=== PATIENT | female | born 1935 ===

== ENCOUNTER 2018-11-15 10:11 | Outpatient (CLI) | payer OTHER | END 2018-11-15 13:20 | disposition home or self-care (01) | LOC: LAB 10:11 | DX: M54.5 Low back pain (principal); I11.9 Hypertensive heart disease without heart failure; M54.14 Radiculopathy, thoracic region; E55.9 Vitamin D deficiency, unspecified; F41.8 Other specified anxiety disorders; G62.89 Other specified polyneuropathies; K21.9 Gastro-esophageal reflux disease without esophagitis; M15.8 Other polyosteoarthritis ==

== ENCOUNTER → 2019-03-02 08:52 | Outpatient (CLI) | payer OTHER | END | disposition home or self-care (01) | LOC: LAB 08:52 | DX: F41.8 Other specified anxiety disorders (principal); E55.9 Vitamin D deficiency, unspecified; G62.89 Other specified polyneuropathies; K21.9 Gastro-esophageal reflux disease without esophagitis; M15.8 Other polyosteoarthritis; M54.14 Radiculopathy, thoracic region; M54.5 Low back pain; I11.9 Hypertensive heart disease without heart failure; H52.13 Myopia, bilateral; H52.4 Presbyopia; L29.2 Pruritus vulvae; L29.0 Pruritus ani; Z68.23 Body mass index [BMI] 23.0-23.9, adult; E03.8 Other specified hypothyroidism ==

== ENCOUNTER 2019-05-05 07:43 | Inpatient (IN) | payer OTHER ==
[~2019-05-05] VITALS: Ht 152.4 cm; Wt 54.4 kg
--- NOTE | 2019-05-05 08:15 | NUR ---
PTE REFIERE VOMITOS TOS Y DEBILIDAD SE BHARTI S/V YSE UBIAC EN AREA DE OBSERVACION
--- NOTE | 2019-05-05 09:20 | NUR ---
SE RECIBE PACIENTE EN DAY.DESPIERTA ALERTA Y ORIENTADA.MUESTRAS SON TOMADAS JOHANA ORDENADAS.MEDICAMENTOS SE ADMINISTRAN JOHANA ORDEN MEDICA. ES ORIENTADA SOBRE PROCEDIMIENTOS A LLEVARSE A CABO,LO CUAL REFIERE COMPRENDER.
[2019-05-08] MEDS ORDERED: XOPENEX0.63 MG/3 IH (09:35)
[2019-05-08] MEDS ORDERED: LEVAQUIN750 MG PO (09:36)
[2019-05-08] MEDS ORDERED: LOSARTAN POTASS50 MG PO (09:36)
[2019-05-08] MEDS ORDERED: DILTIAZEM HCL30 MG PO (09:36)
== END 2019-05-08 16:00 | disposition home health service (06) | DRG 190 ==
LOC: ER 07:43 → SEC-K 15:38 → SURH 15:38
PROVIDERS: ADMIT Internal Medicine
PROC: 3E0F7GC Introduction of Other Therapeutic Substance into Respiratory Tract, Via Natural or Artificial Opening (ICD-10-PCS; principal; 2019-05-05)
PROC: 4A033R1 Measurement of Arterial Saturation, Peripheral, Percutaneous Approach (ICD-10-PCS; 2019-05-05)
PROC: 4A12X4Z Monitoring of Cardiac Electrical Activity, External Approach (ICD-10-PCS; 2019-05-05)
PROC: BB24Y0Z Computerized Tomography (CT Scan) of Bilateral Lungs using Other Contrast, Unenhanced and Enhanced (ICD-10-PCS; 2019-05-07)
DX: J44.0 Chronic obstructive pulmonary disease with (acute) lower respiratory infection (principal); J18.9 Pneumonia, unspecified organism; J80 Acute respiratory distress syndrome; J45.41 Moderate persistent asthma with (acute) exacerbation; J90 Pleural effusion, not elsewhere classified; J20.8 Acute bronchitis due to other specified organisms; I70.0 Atherosclerosis of aorta; I10 Essential (primary) hypertension

== ENCOUNTER 2019-05-11 10:56 | Emergency (ER) | payer OTHER ==
[~2019-05-11] VITALS: Ht 152.4 cm; Wt 45.4 kg
[~2019-05-11 10:56] MED LIST: DILTIAZEM HCL30 MG PO; LEVAQUIN750 MG PO; LOSARTAN POTASS50 MG PO; XOPENEX0.63 MG/3 IH
== END 2019-05-11 15:19 | disposition home or self-care (01) ==
LOC: ER 10:56
DX: J44.9 Chronic obstructive pulmonary disease, unspecified (principal)